=== PATIENT | female | born 1960 | race Caucasian/White ===

== ENCOUNTER 2017-09-15 18:58 | Emergency (ER) | payer BC ==
[~2017-09-15] VITALS: Ht 152.4 cm; Wt 89.0 kg
[2017-09-15] MEDS ORDERED: ASPIRIN 81 MG TABLET CHEW PO ONE (19:30)
[2017-09-15] MEDS ORDERED: SODIUM CHLORIDE FLUSH 10ML SYR IVF ONE (19:30)
[2017-09-15 19:52] LABS: BASOPHILS # (AUTO) 0.03 x10^3/uL (0-0.1); BASOPHILS % (AUTO) 1 % (0-1); EOSINOPHILS # (AUTO) 0.25 x10^3/uL (0-0.4); EOSINOPHILS % (AUTO) 4 % (1-7); LYMPHOCYTES # (AUTO) 2.32 x10^3/uL (1-3.4); LYMPHOCYTES % (AUTO) 33 % (22-44); MD NO; MEAN CORPUSCULAR HEMOGLOBIN 25.1 pg (27.0-34.8); MEAN CORPUSCULAR HGB CONC 31.8 g/dL (32.4-35.8); MEAN CORPUSCULAR VOLUME 78.9 fL (80-100); MEAN PLATELET VOLUME 7.4 fL (7.4-10.4); MONOCYTES # (AUTO) 0.67 x10^3/uL (0.2-0.8); MONOCYTES % (AUTO) 9 % (2-9); NEUTROPHILS # (AUTO) 3.84 x10^3/uL (1.8-6.8); NEUTROPHILS % (AUTO) 54 % (42-75); PLATELET COUNT 439 x10^3/uL (130-400); RED BLOOD COUNT 3.99 x10^6/uL (3.82-5.3); RED CELL DISTRIBUTION WIDTH 15.5 % (9.6-15.2)
[2017-09-15 20:01] LABS: ALBUMIN 3.8 g/dL (3.4-5.0); ANION GAP 8 mmol/L (5-15); CALCIUM 8.6 mg/dL (8.5-10.1); CHLORIDE 106 mmol/L (98-107); CREATININE 1.01 mg/dL (0.55-1.02)
[2017-09-15 20:04] LABS: TROPONIN I < 0.015 ng/mL (0.000-0.045)
[2017-09-15] MEDS ORDERED: DULO60CA7 PO (20:55)
[2017-09-15] MEDS ORDERED: LEVO112T4 PO (20:55)
[2017-09-15] MEDS ORDERED: FAMOTIDINE 20 MG TABLET PO ONE (21:30)
[2017-09-15] MEDS ORDERED: MAALOX/HYOSCYAMINE/LIDOCAINE 45 ML BTL PO ONE (21:30)
[2017-09-15] MEDS ORDERED: FAMOTIDINE 20 MG TABLET ONE (21:35)
[2017-09-15] MEDS ORDERED: MAALOX/HYOSCYAMINE/LIDOCAINE 45 ML BTL ONE (21:35)
[2017-09-15 22:23] VITALS: BP 121/78
== END 2017-09-15 22:24 | disposition home or self-care (01) ==
LOC: ED 21:51
DX: R07.89 Other chest pain (principal); K44.9 Diaphragmatic hernia without obstruction or gangrene; Z90.49 Acquired absence of other specified parts of digestive tract
CPT/HCPCS: 36415; 71045; 76700; 80048; 82040; 83880; 84484; 85025; 93005; 99285

== ENCOUNTER 2021-03-25 05:48 | Inpatient (IN) | payer BC ==
[~2021-03-25] VITALS: Ht 152.4 cm; Wt 100.0 kg
[~2021-03-25 05:48] MED LIST: DULO60CA7 PO; LEVO112T4 PO
[2021-03-25 06:12] VITALS: BP 115/84
[2021-03-25] MEDS ORDERED: SCOPOLAMINE 1MG PATCH TD ONE (06:30)
[2021-03-25] MEDS ORDERED: LACTATED RINGERS 1,000 ML IV SCH (06:30)
[2021-03-25] MEDS ORDERED: ACETAMINOPHEN 100 ML IVPB ONE (06:30)
[2021-03-25] MEDS ORDERED: CHLORHEXIDINE 15 ML UDC PO ONE (06:30)
[2021-03-25] MEDS ORDERED: MIDAZOLAM 1 MG/ML, 2ML ONE (06:37)
[2021-03-25] MEDS ORDERED: FENTANYL PF 250 MCG/5ML ONE (06:37)
[2021-03-25] MEDS ORDERED: GLYCOPYRROLATE 0.2MG/1ML, 5ML ONE (06:43)
[2021-03-25] MEDS ORDERED: CEFAZOLIN 1,000 MG ONE (06:43)
[2021-03-25] MEDS ORDERED: NEOSTIGMINE 1 MG/ML, 10ML ONE (06:43)
[2021-03-25] MEDS ORDERED: ONDANSETRON 2MG/ML, 2ML ONE (06:43)
[2021-03-25] MEDS ORDERED: ROCURONIUM 10MG/ML,5ML ONE (06:43)
[2021-03-25] MEDS ORDERED: PROPOFOL 10 MG/ML, 20ML ONE (06:43)
[2021-03-25] MEDS ORDERED: LEVO125T5 PO (06:48)
[2021-03-25] MEDS ORDERED: CYCL10TA2 PO (06:48)
[2021-03-25] MEDS ORDERED: CELE-47 PO (06:48)
[2021-03-25] MEDS ORDERED: BUPIVACAINE/PF 0.5% ONE (06:50)
[2021-03-25] MEDS ORDERED: EPINEPHRINE 1 MG/ML, 1ML ONE (06:50)
[2021-03-25 07:12] LABS: BASOPHILS % (AUTO) 0 % (0-1); EOSINOPHILS % (AUTO) 2 % (1-7); LYMPHOCYTES % (AUTO) 22 % (22-44); MEAN CORPUSCULAR HEMOGLOBIN 30.9 pg (27.0-34.8); MEAN CORPUSCULAR HGB CONC 33.7 g/dL (32.4-35.8); MONOCYTES % (AUTO) 10 % (2-9); NEUTROPHILS % (AUTO) 66 % (42-75); PLATELET COUNT 298 x10^3/uL (130-400); RED BLOOD COUNT 4.88 x10^6/uL (3.82-5.3); RED CELL DISTRIBUTION WIDTH 13.9 % (9.6-15.2)
[2021-03-25 07:27] LABS: ALBUMIN 3.8 g/dL (3.4-5.0); ANION GAP 2 mmol/L (5-15); CALCIUM 7.7 mg/dL (8.5-10.1); CHLORIDE 106 mmol/L (98-107); CHOLESTEROL, TOTAL 126 mg/dL (140-239)
[2021-03-25] MEDS ORDERED: MEPERIDINE/PF 25MG/0.5ML IVPush PRN (07:30)
[2021-03-25] MEDS ORDERED: morphine SULFATE 10 MG/ML, 1ML IVPush PRN ×2 (07:30→09:30)
[2021-03-25] MEDS ORDERED: FENTANYL PF 100 MCG/2ML IV PRN (07:30)
[2021-03-25] MEDS ORDERED: HALOPERIDOL 5 MG/ML IV PRN (07:30)
[2021-03-25] MEDS ORDERED: LABETALOL 5MG/ML, 20ML IV PRN (07:30)
[2021-03-25] MEDS ORDERED: HYDROmorphone 1 MG/ML, 1ML INJ IVPush PRN (07:30)
[2021-03-25] MEDS ORDERED: PROMETHAZINE 25 MG/ML, 1ML IVPush PRN (07:30)
[2021-03-25] MEDS ORDERED: OXYcodone 5 MG/5 ML ORAL.SOL UDC PO PRN (07:30)
[2021-03-25] MEDS ORDERED: hydrALAzine 20 MG/ML, 1ML IV PRN (07:30)
[2021-03-25] MEDS ORDERED: ACETAMINOPHEN 325 MG TABLET PO PRN (07:30)
[2021-03-25] MEDS ORDERED: DEXAMETHASONE 4 MG/ML, 1ML ONE (07:31)
[2021-03-25] MEDS ORDERED: BUPIVACAINE/PF-EPI 0.5% 1:200K INFIL ONE (07:48)
[2021-03-25 07:54] LABS: ALANINE AMINOTRANSFERASE 36 U/L (12-78); ALKALINE PHOSPHATASE 93 U/L (45-117); BILIRUBIN,TOTAL 0.9 mg/dL (0.2-1.0); CREATININE 0.88 mg/dL (0.55-1.02); HDL CHOL % 49 % (28-40); HDL CHOLESTEROL (DIRECT) 62 mg/dL (40-60); LDL CHOLESTEROL,CALCULATED 36 mg/dL (54-169); LDL/HDL RATIO 0.6 (0.5-3.0); PREALBUMIN 22.3 mg/dL (20.0-40.0); TRIGLYCERIDES 140 mg/dL (50-200); VLDL CHOLESTEROL 28 mg/dL (0-25)
[2021-03-25 07:56] LABS: % IRON SATURATION 273 % (20-55); IRON LEVEL 41 mcg/dL (50-170); TOTAL IRON BINDING CAPACITY 15 mcg/dL (250-450)
[2021-03-25] MEDS ORDERED: FENTANYL PF 100 MCG/2ML ONE ×4 (08:18→08:47)
[2021-03-25] MEDS ORDERED: PROMETHAZINE 25 MG/ML, 1ML IM PRN (09:30)
[2021-03-25] MEDS ORDERED: LORazepam 2 MG/ML, 1ML IV PRN (09:30)
[2021-03-25] MEDS ORDERED: DIPHENHYDRAMINE 50 MG/ML, 1ML IV PRN (09:30)
[2021-03-25] MEDS: LACTATED RINGERS 1,000 ML IV SCH ×2 (09:30→18:25)
[2021-03-25] MEDS ORDERED: hydrALAzine 20 MG/ML, 1ML IVPush PRN (09:30)
[2021-03-25] MEDS ORDERED: ENALAPRILAT 1.25 MG/ML, 2ML IV PRN (09:30)
[2021-03-25] MEDS: FAMOTIDINE 20 MG/2 ML IVPush SCH ×2 (09:30→21:44)
[2021-03-25] MEDS ORDERED: ONDANSETRON 2MG/ML, 2ML IVPush PRN (09:30)
[2021-03-25] MEDS ORDERED: METHOCARBAMOL 1,000 MG in DEXTROSE 5% 100 ML IV ONE (09:30)
[2021-03-25] MEDS ORDERED: PROMETHAZINE 12.5 MG SUPP PR PRN (09:30)
[2021-03-25] MEDS ORDERED: HYDR15SO3 PO (12:03)
[2021-03-25] MEDS: KETOROLAC 30 MG/1 ML IVPush PRN ×2 (15:45→21:44)
[2021-03-25] MEDS: HYDROcodone/APAP 7.5-325MG/15ML UDC PO PRN ×2 (18:23→23:03)
[2021-03-25 18:30] VITALS: BP 135/85
[2021-03-25] MEDS: PHENOL THROAT SPRAY BOTTLE MM PRN (23:36)
[2021-03-26 00:59] VITALS: BP 117/68
[2021-03-26] MEDS: PHENOL THROAT SPRAY BOTTLE MM PRN (01:52)
[2021-03-26] MEDS: LACTATED RINGERS 1,000 ML IV SCH ×2 (01:52→10:00)
[2021-03-26 04:39] VITALS: BP 101/58
[2021-03-26 06:30] VITALS: BP 109/69
[2021-03-26] MEDS: HYDROcodone/APAP 7.5-325MG/15ML UDC PO PRN ×2 (06:34→11:29)
[2021-03-26 06:54] LABS: BASOPHILS % (AUTO) 0 % (0-1); CHLORIDE 104 mmol/L (98-107); EOSINOPHILS % (AUTO) 0 % (1-7); LYMPHOCYTES % (AUTO) 10 % (22-44); MEAN CORPUSCULAR HEMOGLOBIN 30.7 pg (27.0-34.8); MONOCYTES % (AUTO) 10 % (2-9); NEUTROPHILS % (AUTO) 79 % (42-75); PLATELET COUNT 293 x10^3/uL (130-400); RED BLOOD COUNT 4.54 x10^6/uL (3.82-5.3); RED CELL DISTRIBUTION WIDTH 14.2 % (9.6-15.2)
[2021-03-26 06:58] LABS: ALBUMIN 3.4 g/dL (3.4-5.0); ANION GAP 6 mmol/L (5-15); CALCIUM 8.4 mg/dL (8.5-10.1); CREATININE 0.78 mg/dL (0.55-1.02)
[2021-03-26] MEDS: FAMOTIDINE 20 MG/2 ML IVPush SCH (08:50)
[2021-03-26] MEDS: KETOROLAC 30 MG/1 ML IVPush PRN (08:50)
[2021-03-26] MEDS ORDERED: ENOXAPARIN 40 MG/0.4 ML SQ SCH (09:00)
[2021-03-26] MEDS ORDERED: LEVOTHYROXINE 125 MCG TABLET PO SCH (09:00)
== END 2021-03-26 13:50 | disposition home or self-care (01) | DRG 327 ==
LOC: ORIP 05:48 → 4NE 10:43
PROVIDERS: ADMIT Thoracic Surgery (Cardiothoracic Vascular Surgery); ATTEND Thoracic Surgery (Cardiothoracic Vascular Surgery)
PROC: 0DB64Z3 Excision of Stomach, Percutaneous Endoscopic Approach, Vertical (ICD-10-PCS; 2021-03-25)
PROC: 8E0W4CZ Robotic Assisted Procedure of Trunk Region, Percutaneous Endoscopic Approach (ICD-10-PCS; 2021-03-25)
PROC: 0BUT4JZ Supplement Diaphragm with Synthetic Substitute, Percutaneous Endoscopic Approach (ICD-10-PCS; principal; 2021-03-25 07:30)
DX: K44.9 Diaphragmatic hernia without obstruction or gangrene (principal); Z68.41 Body mass index [BMI] 40.0-44.9, adult; E66.01 Morbid (severe) obesity due to excess calories; K21.9 Gastro-esophageal reflux disease without esophagitis; G62.9 Polyneuropathy, unspecified; M19.90 Unspecified osteoarthritis, unspecified site; R53.83 Other fatigue
CPT/HCPCS: 36415; S0020; 71045; 80048; 80053; 80061; 82040; 82306; 82607; 82728; 83540; 83550; 83970; 84134; 84425; 85025; 93005; G0378; J0131; J0171; J0690; J1100; J1650; J1885; J2250; J2405; J2704; J2710; J3010; C1781; J2270; J2800; J7120

== ENCOUNTER 2021-05-04 15:20 | Emergency (ER) | payer BC ==
[2021-05-04 20:16] VITALS: BP 128/83
== END 2021-05-04 20:20 | disposition home or self-care (01) ==
LOC: ED 16:05
DX: N13.2 Hydronephrosis with renal and ureteral calculous obstruction (principal); R11.2 Nausea with vomiting, unspecified
CPT/HCPCS: 36415; 74176; 80053; 81001; 85025; 87086; 96361; 96374; 96375; 96376; 99285; J1170; J1885; J2405; J7030